=== PATIENT | male | born 1940 | race Caucasian/White ===

== ENCOUNTER → 2017-04-30 | Outpatient (CLI) | payer OTHER ==
[~2017-04-30] MED LIST: OPTIRAY 320 IV
[2017-04-30 17:44] LABS: URINE APPEARANCE CLEAR (CLEAR); URINE BILIRUBIN NEG (NEG); URINE BLOOD HGB NEG (NEG); URINE COLOR YELLOW; URINE GLUCOSE(DIPSTICK) NEG (NEG); URINE KETONES TRACE (NEG); URINE LEUKOCYTE ESTERASE NEG (NEG); URINE NITRITE NEG (NEG); URINE PROTEIN(DIPSTICK) NEG (NEG); URINE SPECIFIC GRAVITY 1.026 (1.000-1.030); UROBILINOGEN NEG (NEG)
[2017-04-30 18:03] LABS: MANUAL MICROSCOPIC REQUIRED? NO; REVIEW REQ? NO
[2017-04-30 18:05] LABS: GLUCOSE 97 mg/dl (70-99)
[2017-04-30 18:05] LABS: BLOOD UREA NITROGEN 18 mg/dl (7-18); BUN/CREATININE RATIO 13.7 (10-20); CALCIUM 9.5 mg/dl (8.5-10.1); CARBON DIOXIDE 29 mmol/L (21-32); CHLORIDE 105 mmol/L (98-107); CREATININE 1.29 mg/dl (0.60-1.40); EstGFR CKD-E NON AfrAm 53.5; POTASSIUM 4.2 mmol/L (3.5-5.1); SODIUM 140 mmol/L (136-145)
[2017-04-30 18:29] LABS: BASO % 0.3 %; BASO ABS # 0.03 K/uL (0-0.2); COMPLETE YES; EOS % 2.7 %; EOS ABS # 0.28 K/uL (0-0.5); HEMATOCRIT 43.2 % (42-52); HEMOGLOBIN 14.8 g/dL (14.0-18.0); IG# 0.02 K/uL (0.00-0.02); IG% 0.2 %; LYMPH % 15.3 %; LYMPH ABS # 1.58 K/uL (1.2-3.4); MEAN CELL VOLUME 94.9 fL (80-100); MEAN CORPUSCULAR HEMOGLOBIN 32.5 pg (25-34); MEAN CORPUSCULAR HGB CONC 34.3 g/dl (32-36); MEAN PLATELET VOLUME 10.7 fL (7.4-10.4); MONO % 9.4 %; MONO ABS # 0.97 K/uL (0.11-0.59); NEUT % 72.1 %; NEUT ABS # 7.47 K/uL (1.4-6.5); PLATELET COUNT 195 K/uL (130-400); RED BLOOD COUNT 4.55 M/uL (4.7-6.1); RED CELL DISTRIBUTION WIDTH CV 13.5 % (11.5-14.5); RED CELL DISTRIBUTION WIDTH SD 46.8 fL (36.4-46.3); WHITE BLOOD COUNT 10.35 K/uL (4.8-10.8)
== END | disposition home or self-care (01) ==
LOC: C.CTS 16:21
DX: K57.32 Diverticulitis of large intestine without perforation or abscess without bleeding (principal)